=== PATIENT | female | born 1945 | race Caucasian/White ===

== ENCOUNTER 2020-05-15 12:10 | Emergency (ER) | payer MEDICARE, BC ==
[2020-05-15 12:52] LABS: VENOUS BLOOD HCO3 6.6 mmol/L (20-32); VENOUS BLOOD PCO2 35.8 mmHg (35-63); VENOUS BLOOD PH 6.88 (7.30-7.42)
[2020-05-15 12:54] LABS: HEMATOCRIT 34.1 % (36.0-47.0); HEMOGLOBIN 10.4 g/dL (12.0-15.5); MEAN CORPUSCULAR HEMOGLOBIN 30.4 pg (27.0-33.4); MEAN CORPUSCULAR HGB CONC 30.4 g/dL (32.0-36.0); MEAN CORPUSCULAR VOLUME 100 fl (80-97); RED BLOOD COUNT 3.41 10^6/uL (3.72-5.28); RED CELL DISTRIBUTION WIDTH 13.2 % (11.5-14.0)
[2020-05-15] MEDS ORDERED: CALCIUM GLUCONATE 1000 MG/10 ML INJ IV ONE (12:54)
[2020-05-15] MEDS ORDERED: NORMAL SALINE 1000 ML 1,000 ML IV ONE ×3 (13:06→17:42)
[2020-05-15 13:10] LABS: ABSOLUTE LYMPHOCYTES# (MANUAL) 3.2 10^3/uL (0.5-4.7); ABSOLUTE MONOCYTES # (MANUAL) 0.6 10^3/uL (0.1-1.4); BASOPHILS % (MANUAL) 0 % (0-2); EOSINOPHILS % (MANUAL) 0 % (0-6); LYMPHOCYTES % (MANUAL) 15 % (13-45); MONOCYTES % (MANUAL) 3 % (3-13); SEGMENTED NEUTROPHILS % (MAN) 81 % (42-78); TOTAL CELLS COUNTED 100
[2020-05-15 13:11] LABS: PLATELET CLUMPS PRESENT; PLATELET COMMENT INCREASED; PLATELET COUNT 493 10^3/uL (150-450); POLYCHROMASIA SLIGHT; TOXIC GRANULATION SLIGHT; TOXIC VACUOLATION PRESENT
[2020-05-15] MEDS ORDERED: DEXTROSE 5%-WATER 1000 ML 1,000 ML with SODIUM BICARBONATE 150 MEQ IV PRN ×4 (13:11→18:26)
[2020-05-15] MEDS ORDERED: INSULIN REG, HUMAN 100 UNIT/ML 3 ML VIAL (PYX) IV ONE ×2 (13:17→16:36)
[2020-05-15] MEDS ORDERED: DEXTROSE 50%-WATER 25 GM/50 ML DISP.SYRIN IV ONE ×2 (13:17→16:37)
--- NOTE | 2020-05-15 13:17 | ER Document Report ---
ED General <ALLAN SAUL P - Last Filed: 05/15/20 20:05> - Related Data Home Medications: Lasix, labetalol, metformin, pravastatin, myocarditis, <PETR AWAD - Last Filed: 05/16/20 06:33> - General Chief Complaint: General Weakness Stated Complaint: GENERAL WEAKNESS Time Seen by Provider: 05/15/20 12:53 Primary Care Provider: ANDERSON TAYLOR MD [Primary Care Provider] - Follow up as needed - HPI Notes: Patient is a 75-year-old female brought in the emergency department for evaluation by EMS. Eventually she is had vomiting and diarrhea for the last 3 days. She has been weak and increasingly confused. She has had multiple episodes of diarrhea in the last 24 hours. Patient states she is only had "dry heaves" today. She denies any pain. Patient's daughter notes that she seems to have been having increased difficulty breathing starting yesterday. Otherwise she has been taking her medications as prescribed. No recent antibiotics. (PETR AWAD) - Related Data Allergies/Adverse Reactions: No Known Allergies Allergy (Unverified 05/15/20 16:18) Past Medical History - General Information source: Patient, Relative - Daughter - Social History Smoking Status: Never Smoker Frequency of alcohol use: None Family History: Reviewed & Not Pertinent - Medical History Medical History: Other - Anemia - Past Medical History Cardiac Medical History: Reports: Hx Hypercholesterolemia, Hx Hypertension Neurological Medical History: Reports: Hx Cerebrovascular Accident Endocrine Medical History: Reports: Hx Diabetes Mellitus Type 2 GI Medical History: Reports: Hx Gastroesophageal Reflux Disease, Hx Ulcer Past Surgical History: Reports: None <PETR AWAD - Last Filed: 05/16/20 06:33> Review of Systems - Review of Systems Constitutional: Weakness Respiratory: See HPI Gastrointestinal: See HPI Neurological/Psychological: See HPI -: Yes All other systems reviewed and negative <PETR AWAD - Last Filed: 05/16/20 06:33> Physical Exam <PETR AWAD - Last Filed: 05/16/20 06:33> - Vital signs Vitals: Pulse Ox 100 05/15/20 12:22 - Notes Notes: This is a 75-year-old female who appears her stated age in a significant amount of distress. She is obviously dyspneic, with abdominal breathing, clear respiratory distress. She is drowsy but arouses easily to verbal stimuli. Vital signs reviewed, please refer to chart. Head is normocephalic, atraumatic. Pupils equal round, reactive to light. Oral mucosa slightly dry. Neck is supple without meningismus. Heart is regular rate and rhythm. Lungs reveal diminished breath sounds but no wheezes, rales, rhonchi. Abdomen is obese, nontender, normoactive bowel sounds throughout. Extremities without cyanosis, clubbing. Posterior calves are nontender. Peripheral pulses are equal. Skin is warm and dry. Patient is awake, alert, cooperative with examiner. (PETR AWAD) Course - Laboratory Result Diagrams: 05/15/20 12:35 05/15/20 15:45 <ALLAN SAUL - Last Filed: 05/15/20 20:05> - Laboratory Result Diagrams: 05/15/20 12:35 05/15/20 15:45 - Diagnostic Test Radiology reviewed: Reports reviewed <PETR AWAD - Last Filed: 05/16/20 06:33> - Re-evaluation Re-evalutation: 05/15/20 18:59 I received pt in turnover from Dr. Awad awaiting transfer to [facility]. In short, unfortunate female with Acute Resp failure and Acute Renal Failure - oliguric - in need of emergent HD and no history of previous need for dialysis. She is currently on ventilator and levophed and most recent SBP is approximately 100. Sedated on Versed at 2 mg hours. No urine in lala at this point. 05/15/20 20:05 Helicopter transfer team is here and in the process of transporting pt. She is stable for transfer and Dr. Zacarias graciously has placed a trialysis catheter prior to transfer. She remains sedated and on a ventilator. (ALLAN SAUL) 05/15/20 14:16 Patient presents to the emergency department for evaluation of weakness. On arrival it was noted that her heart rate listed in the 160s, but I suspect this is incorrect artifact, as the T waves were peaked, likely getting counted twice. I went in and got a manual pulse which was found to be in the low 80s. Patient has had significant diarrhea and decreased oral intake over the last several days. Her complexes are markedly wide. Her likely diagnosis was hyperkalemia and acute renal failure. She was given calcium. Her venous pH was found to be 6.88, so she was started on bicarb and her fluids. When her potassium was reported to be just under 10, she was given insulin and dextrose. Currently, her QRS complexes have shortened significantly. She is stable. She was placed on BiPAP secondary to increased respiratory distress, which has improved significantly as well. I am still waiting laboratory investigations. She has 2 peripheral IV lines. She is currently stable, we will continue to monitor. 05/15/20 15:33 Patient has remained stable, but her blood pressure is borderline. Currently her blood pressures have she had a map of 60. Her systolic is in the 100s. The patient states she was feeling improved, was given a small dose of morphine for right buttock pain after falling a few days ago. Patient is laboratory ve sication she had acute renal failure, non-anion gap metabolic acidosis. This is all consistent with her diarrhea. She does have a 20,000 white count. She does have an elevated respiratory rate. Certainly she meets sirs criteria, but I do not have any clear source of infection at this time. Urinalysis and urine culture are pending at this time. Blood cultures already pending. Chest x-ray unremarkable. I have spoken with Dr. Doan. Certainly given her laboratory investigation findings, she may in fact need evaluation in the intensive care unit. BMP repeated, EKG repeated, awaiting Dr. Doan's evaluation. 05/15/20 16:37 Dr. Doan came to the department. He is concerned the patient may need emergent dialysis given her numbers. He states that if the potassium is shifted largely, he will accept the patient. Unfortunately, the patient's potassium is still 8.6. I will contact an outside facility for transfer. The patient would prefer to go to [facility] at this time. 05/15/20 17:[address] Prnice at 1650, mold swabber at [facility]. She agrees the patient needs transfer and likely emergent dialysis. She states that she would only accept the patient, however, if her airway is secured. She is concerned she has no reserve. I went and discussed this at length with the patient as well as the patient's daughter. Questions were sought and answered, and they h ave agreed to have airway secured with ET tube at this time. Currently room is being set up with glide scope, ET tube. Will pre-oxygenate, medicate with etomidate. Ordering Versed drip for sedation. We will continue to monitor, awaiting intubation. 05/15/20 17:25 Patient's airway secured. Sedation medications and vent orders placed. Awaiting a bed assignment at [facility]. 05/15/20 17:31 Urinalysis finally obtained and showed large leukocyte esterase with white and red blood cells. Urine culture is pending. Given this and her 20,000 white count, as well as elevated respiratory rate, she does meet sepsis criteria. Patient given Rocephin. 05/15/20 17:42 After intubation, patient's blood pressure did drop into the 70s over 40s. She was given a Versed 5 push in an effort to sedate her. I suspect this may have been the etiology of her low blood pressure. Verbal order given to open up fluids with bicarb. 1/3 L of normal saline is ordered. Her blood pressure has improved. I have ordered Levophed, but will have this held for a systolic blood pressure greater than 90, map greater than 65. She does have a bed assignment at [facility], room 3508. Given her further change in status and critical laboratory values, we will attempt to fly the patient. (PETR AWAD) - Vital Signs Vital signs: Temp Pulse Resp BP Pulse Ox 95.1 F L 16 117/48 L 96 05/15/20 19:46 05/15/20 19:46 05/15/20 19:46 05/15/20 19:46 - Laboratory Laboratory results interpreted by me: 05/15/20 05/15/20 05/15/20 12:35 12:35 13:52 WBC 20.0 H RBC 3.41 L Hgb 10.4 L Hct 34.1 L MCV 100 H MCHC 30.4 L Plt Count 493 H Seg Neuts % (Manual) 81 H Abs Neuts (Manual) 16.2 H VBG pH 6.88 L* VBG HCO3 6.6 L Sodium Potassium Carbon Dioxide Anion Gap BUN Creatinine Est GFR ( Amer) Est GFR (MDRD) Non-Af Glucose POC Glucose 437 H* Lactic Acid Magnesium Total Protein Urine Protein Urine Ketones Urine Blood Ur Leukocyte Esterase 05/15/20 05/15/20 05/15/20 14:11 14:11 15:35 WBC RBC Hgb Hct MCV MCHC Plt Count Seg Neuts % (Manual) Abs Neuts (Manual) VBG pH VBG HCO3 Sodium 135.8 L Potassium 9.2 H* Carbon Dioxide 6 L* Anion Gap 32 H BUN 73 H Creatinine 11.82 H Est GFR ( Amer) 4 L Est GFR (MDRD) Non-Af 3 L Glucose 318 H POC Glucose Lactic Acid 7.0 H Magnesium 2.6 H Total Protein 6.2 L Urine Protein 100 H Urine Ketones TRACE H Urine Blood LARGE H Ur Leukocyte Esterase LARGE H 05/15/20 05/15/20 15:45 19:18 WBC RBC Hgb Hct MCV MCHC Plt Count Seg Neuts % (Manual) Abs Neuts (Manual) VBG pH VBG HCO3 Sodium 136.9 L Potassium 8.6 H* Carbon Dioxide 5 L* Anion Gap 33 H BUN 74 H Creatinine 12.33 H Est GFR ( Amer) 4 L Est GFR (MDRD) Non-Af 3 L Glucose 283 H POC Glucose Lactic Acid 8.2 H Magnesium Total Protein Urine Protein Urine Ketones Urine Blood Ur Leukocyte Esterase - Diagnostic Test Radiology results interpreted by me: 05/15/20 14:21 Chest X-Ray 05/15/20 13:18 IMPRESSION: No evidence of acute cardiopulmonary abnormality. (PETR AWAD) - EKG Interpretation by Me Additional EKG results interpreted by me: 05/15/20 14:21 EKG reveals sinus mechanism with a rate of 75 bpm. First-degree AV block. Right bundle branch block. She has markedly widened QRS with peaked T waves consistent with likely hyperkalemia. There are no old studies available for comparison. 05/15/20 16:38 Repeat EKG shows a narrowing of the QRS to below 140 ms. Peaking of T waves has improved. (PETR AWAD) Procedures - Central Line Right Femoral Time completed: 17:50 Consent obtained: No Central line pre-insertion: Sterile PPE donned, Chloraprep applied Central line lumen type: Triple Ultrasound guided: Yes Line secured with sutures: No - Intubation Orotracheal Airway evaluation: Abnormal 3-3-2 rule, Obese Mallampati Classification: Class 3 Medications: Etomidate - 30 mg Intubation method: Orotracheal Blade type: Sonia Blade size: 3 Equipment used: Glidescope ETT size: 7.5 ETT secured at: Lips ETT secured at (cm): 19 Breath Sounds after Intubation: Equal End tidal CO2 confirmed: Yes Ventilator settings: SIMV - See separate order <PETR AWAD - Last Filed: 05/16/20 06:33> - Central Line Right Femoral Notes: 05/15/20 18:29 Year he was prepped and draped in the usual sterile fashion. Emergency override consent was given as the patient was moderately hypotensive. The right femoral vein was identified with the ultrasound. Under sterile technique, the right femoral vein was initially cannulated with the finder needle. There was dark blood, no pulsatile return. I went to advance the guidewire and did meet some resistance, but was hopeful that enough of the wire was fed. A small mckenna in the skin was placed with a 10 blade. I again I fed the dilator, and a small amount of resistance was obtained. I threaded the central line over the guidewire, which had already been flushed with normal saline. It would not advance appropriately. At one point I did receive return, but otherwise could not flush nor receive good return. The procedure was abandoned. (PETR AWAD) Critical Care Note - Critical Care Note Total time excluding time spent on procedures (mins): 95 <PETR AWAD - Last Filed: 05/16/20 06:33> Discharge <ALLAN SAUL P - Last Filed: 05/15/20 20:05> - Discharge Admitting Provider: Dr. Prince <PETR AWAD - Last Filed: 05/16/20 06:33> - Discharge Clinical Impression: Hyperkalemia, Metabolic acidosis, Nausea vomiting and diarrhea, Severe sepsis Acute renal failure Qualifiers: Acute renal failure type: unspecified Qualified Code(s): N17.9 - Acute kidney failure, unspecified Leukocytosis Qualifiers: Leukocytosis type: unspecified Qualified Code(s): D72.829 - Elevated white blood cell count, unspecified Urinary tract infection Qualifiers: Urinary tract infection type: site unspecified Hematuria presence: without hematuria Qualified Code(s): N39.0 - Urinary tract infection, site not specified Condition: Stable Disposition: [facility] Referrals: ANDERSON TAYLOR MD [Primary Care Provider] - Follow up as needed
[2020-05-15] MEDS ORDERED: ONDANSETRON HCL INJ/PF 4 MG/2 ML SDV IV ONE (13:18)
[2020-05-15] MEDS ORDERED: SODIUM BICARBONATE 8.4% INJ 50 MEQ/50 ML DISP.SYRIN IV ONE (13:30)
--- NOTE | 2020-05-15 14:12 | RADIOLOGY REPORT (SQ) ---
EXAM DESCRIPTION: CHEST SINGLE VIEW IMAGES COMPLETED DATE/TIME: 05/15/2020 2:03 pm REASON FOR STUDY: dyspnea COMPARISON: None. EXAM PARAMETERS: NUMBER OF VIEWS: One view. TECHNIQUE: Single frontal radiographic view of the chest acquired. RADIATION DOSE: NA LIMITATIONS: None. FINDINGS: LUNGS AND PLEURA: Low lung volumes without focal consolidation, large pleural effusion, or pneumothorax. MEDIASTINUM AND HILAR STRUCTURES: No masses. Contour normal. HEART AND VASCULAR STRUCTURES: Heart normal in size. Normal vasculature. BONES: No acute findings. HARDWARE: None in the chest. OTHER: No other significant finding. IMPRESSION: No evidence of acute cardiopulmonary abnormality. TECHNICAL DOCUMENTATION: JOB ID: [id number] 2010 [employer]- All Rights Reserved Reading location - IP/workstation name: [email or web address]
[2020-05-15] MEDS ORDERED: MORPHINE SULFATE 10 MG/ML INJ IV ONE (14:15)
[2020-05-15 15:19] LABS: ALBUMIN 3.7 g/dL (3.5-5.0); ALKALINE PHOSPHATASE 67 U/L (38-126); ASPARTATE AMINO TRANSFERASE 27 U/L (14-36); BILIRUBIN,TOTAL 0.2 mg/dL (0.2-1.3); BLOOD UREA NITROGEN 73 mg/dL (7-20); CALCIUM 9.4 mg/dL (8.4-10.2); CHLORIDE 98 mmol/L (98-107); GLUCOSE 318 mg/dL (75-110); TOTAL PROTEIN 6.2 g/dL (6.3-8.2)
[2020-05-15 15:21] LABS: ALCOHOL < 10 mg/dL (NONE DETECTED)
[2020-05-15 15:22] LABS: ANION GAP 32 (5-19); CARBON DIOXIDE 6 mmol/L (22-30); POTASSIUM 9.2 mmol/L (3.6-5.0)
[2020-05-15 16:31] LABS: BLOOD UREA NITROGEN 74 mg/dL (7-20); CALCIUM 9.2 mg/dL (8.4-10.2); GLUCOSE 283 mg/dL (75-110)
[2020-05-15 16:36] LABS: CHLORIDE 99 mmol/L (98-107)
[2020-05-15 16:37] LABS: ANION GAP 33 (5-19); POTASSIUM 8.6 mmol/L (3.6-5.0)
[2020-05-15 16:38] LABS: CARBON DIOXIDE 5 mmol/L (22-30)
[2020-05-15 16:48] LABS: APPEARANCE,URINE CLOUDY; BILIRUBIN,URINE NEGATIVE (NEGATIVE); COLOR,URINE YELLOW; GLUCOSE, URINE NEGATIVE (NEGATIVE); KETONES,URINE TRACE mg/dL (NEGATIVE); LEUKOCYTE ESTERASE,URINE LARGE (NEGATIVE); NITRITE,URINE NEGATIVE (NEGATIVE); PROTEIN,URINE 100 mg/dL (NEGATIVE); URINE SPECIFIC GRAVITY 1.012; UROBILINOGEN,URINE NEGATIVE mg/dL (<2.0)
[2020-05-15 17:01] LABS: URINE AMPHETAMINES SCREEN NEGATIVE; URINE BARBITURATES SCREEN NEGATIVE; URINE BENZODIAZEPINES SCREEN NEGATIVE; URINE COCAINE SCREEN NEGATIVE; URINE MARIJUANA (THC) SCREEN NEGATIVE; URINE METHADONE SCREEN NEGATIVE; URINE PHENCYCLIDINE SCREEN NEGATIVE
[2020-05-15] MEDS ORDERED: ETOMIDATE INJ/PF 20 MG/10 ML SDV IV ONE (17:07)
--- NOTE | 2020-05-15 17:16 | PDOC CRITICAL CARE PROG REPORT ---
General Date:: 05/15/20 Hospital Day:: 1 Resuscitation Status: Full Code Events in the past 12 to 24 Hours:: N/V, dehydration and ARF with hyperkalemia. Review of systems relevant to events:: GI, renal. Reason for ICU Addmission:: Evaluation. - Medications: Medications reviewed and adjusted accordingly: Yes Vasopressors:: None Sedation:: None Physical Exam Vital Signs: Temp Pulse Resp BP Pulse Ox 27 H 123/62 99 05/15/20 16:43 05/15/20 15:31 05/15/20 16:43 Intake & Output 05/14/20 05/15/20 05/16/20 06:59 06:59 06:59 Intake Total 1000 Balance 1000 Weight 108.862 kg Weight/Height Weight 108.862 kg Height 5 ft 1 in General appearance: PRESENT: cooperative, mild distress, morbidly obese Head exam: PRESENT: atraumatic, normocephalic Eye exam: PRESENT: conjunctiva pink, EOMI, PERRLA. ABSENT: scleral icterus Ear exam: PRESENT: normal external ear exam Mouth exam: PRESENT: dry mucosa, tongue midline Respiratory exam: PRESENT: clear to auscultation khoi. ABSENT: rales, rhonchi, wheezes Cardiovascular exam: PRESENT: RRR. ABSENT: diastolic murmur, rubs, systolic murmur GI/Abdominal exam: PRESENT: distended, soft Rectal exam: PRESENT: deferred Gentrourinary exam: PRESENT: indwelling catheter Extremities exam: PRESENT: full ROM. ABSENT: calf tenderness, clubbing, pedal edema Musculoskeletal exam: PRESENT: normal inspection Neurological exam: PRESENT: alert, awake, oriented to person, oriented to place, oriented to time, oriented to situation Psychiatric exam: PRESENT: appropriate affect, normal mood. ABSENT: homicidal ideation, suicidal ideation Skin exam: PRESENT: dry, intact, warm. ABSENT: cyanosis, rash Laboratory/Radiographs Laboratory Results: 05/15/20 12:35 05/15/20 15:45 05/15/20 05/15/20 05/15/20 12:35 12:35 12:35 WBC 20.0 H RBC 3.41 L Hgb 10.4 L Hct 34.1 L MCV 100 H MCH 30.4 MCHC 30.4 L RDW 13.2 Plt Count 493 H Seg Neutrophils % Not Reportable VBG pH 6.88 L* VBG pCO2 35.8 VBG HCO3 6.6 L VBG Base Excess -26.0 Sodium Cancelled Potassium Cancelled Chloride Cancelled Carbon Dioxide Cancelled Anion Gap Cancelled BUN Cancelled Creatinine Cancelled Est GFR ( Amer) Cancelled Est GFR (Non-Af Amer) Cancelled Glucose Cancelled Lactic Acid Calcium Cancelled Magnesium Cancelled Total Bilirubin Cancelled AST Cancelled Alkaline Phosphatase Cancelled Total Protein Cancelled Albumin Cancelled Urine Color Urine Appearance Urine pH Ur Specific Jasper Urine Protein Urine Glucose (UA) Urine Ketones Urine Blood Urine Nitrite Ur Leukocyte Esterase Urine WBC (Auto) Urine RBC (Auto) 05/15/20 05/15/20 05/15/20 12:35 14:11 14:11 WBC RBC Hgb Hct MCV MCH MCHC RDW Plt Count Seg Neutrophils % VBG pH VBG pCO2 VBG HCO3 VBG Base Excess Sodium 135.8 L Potassium 9.2 H* Chloride 98 Carbon Dioxide 6 L* Anion Gap 32 H BUN 73 H Creatinine 11.82 H Est GFR ( Amer) 4 L Est GFR (Non-Af Amer) Glucose 318 H Lactic Acid Cancelled 7.0 H Calcium 9.4 Magnesium 2.6 H Total Bilirubin 0.2 AST 27 Alkaline Phosphatase 67 Total Protein 6.2 L Albumin 3.7 Urine Color Urine Appearance Urine pH Ur Specific Jasper Urine Protein Urine Glucose (UA) Urine Ketones Urine Blood Urine Nitrite Ur Leukocyte Esterase Urine WBC (Auto) Urine RBC (Auto) 05/15/20 05/15/20 15:35 15:45 WBC RBC Hgb Hct MCV MCH MCHC RDW Plt Count Seg Neutrophils % VBG pH VBG pCO2 VBG HCO3 VBG Base Excess Sodium 136.9 L Potassium 8.6 H* Chloride 99 Carbon Dioxide 5 L* Anion Gap 33 H BUN 74 H Creatinine 12.33 H Est GFR ( Amer) 4 L Est GFR (Non-Af Amer) Glucose 283 H Lactic Acid Calcium 9.2 Magnesium Total Bilirubin AST Alkaline Phosphatase Total Protein Albumin Urine Color YELLOW Urine Appearance CLOUDY Urine pH 5.0 Ur Specific Jasper 1.012 Urine Protein 100 H Urine Glucose (UA) NEGATIVE Urine Ketones TRACE H Urine Blood LARGE H Urine Nitrite NEGATIVE Ur Leukocyte Esterase LARGE H Urine WBC (Auto) 86 Urine RBC (Auto) >182 Impressions: Chest X-Ray 05/15/20 13:18 IMPRESSION: No evidence of acute cardiopulmonary abnormality. EKG: NSR now. Earlier had peaked T-waves. All labs, radiographs, diagnostic studies and EKGs were personally reviewed: Yes In addition, reports of radiographic and diagnostic studies were read: Yes Assessment and Plan - Diagnosis (1) Acute renal failure Qualifiers: Acute renal failure type: with acute tubular necrosis Qualified Code(s): N17.0 - Acute kidney failure with tubular necrosis Is this a current diagnosis for this admission?: Yes Plan: Profound with CR about 12 and GFR 4. Largely from dehydration. Hyperkalemic as well. I doubt her Cr will improve much in the next 24 hours. (2) Diabetes Qualifiers: Chronic kidney disease stage: stage 5, not on chronic dialysis Is this a current diagnosis for this admission?: Yes Plan: Currently not controlled in 3-400 range (3) Hyperkalemia Is this a current diagnosis for this admission?: Yes Plan: Level is nearly 9. Repeat aftewr fluid and bicarb is 8.6. Pt needs emergant HD or CRRT. HD not available at this time. CRRT not done at [place]. [facility] (4) Metabolic acidosis Is this a current diagnosis for this admission?: Yes Plan: Still acidotic despite bicarb drip. (5) Nausea vomiting and diarrhea Is this a current diagnosis for this admission?: Yes Plan: Currently not active but the illness has lasted 3-4 days and patient has been taking lasix thus worsening the situation. Plan Summary: [facility] for secure airway on bipap currently. Critical Time Critical Time (minutes): 40 Level of Care: ICU Anticipated discharge: [facility] Anticipated DC Timeframe: Other -: 1. The care of a critical patient is a dynamic process. This note is a fraud representative synopsis but static in nature. The timeframe for treatments given in order is not necessarily the actual time these treatments may have been done. 2. This patient requires critical care secondary to ongoing requirements for therapy not offered or safe outside the critical care environment. Transfer to a lower level of care will result in altered life or limb morbidity and mortality. 3. Multidisciplinary rounds completed. 4. ABCDE bundle addressed.
[2020-05-15] MEDS ORDERED: MIDAZOLAM 2 MG/2 ML INJ ONE (17:23)
[2020-05-15] MEDS ORDERED: MIDAZOLAM 2 MG/2 ML INJ IV ONE (17:24)
[2020-05-15] MEDS: MIDAZOLAM HCL 50 MG/100 ML RTUINJ IV PRN ×2 (17:33→18:48)
[2020-05-15] MEDS ORDERED: NOREPINEPHRINE BITARTRATE INJ/PF 4 MG/4 ML SDV IV ONE (17:40)
--- NOTE | 2020-05-15 18:03 | RADIOLOGY REPORT (SQ) ---
EXAM DESCRIPTION: CHEST SINGLE VIEW IMAGES COMPLETED DATE/TIME: 05/15/2020 4:34 pm REASON FOR STUDY: ETT placement COMPARISON: Same date at 1401 hours. . EXAM PARAMETERS: NUMBER OF VIEWS: One view. TECHNIQUE: Single frontal radiographic view of the chest acquired. RADIATION DOSE: NA LIMITATIONS: None. FINDINGS: LUNGS AND PLEURA: Patchy bibasilar atelectasis. No focal consolidation or pleural effusio n. MEDIASTINUM AND HILAR STRUCTURES: No masses. Contour normal. HEART AND VASCULAR STRUCTURES: Heart normal in size. Normal vasculature. BONES: No acute findings. HARDWARE: Interval placement of endotracheal tube with tip approximately 1.9 cm above the salazar. Es ophagogastric tube tip and side-hole are below the diaphragm likely within the stomach. OTHER: No other significant finding. IMPRESSION: Endotracheal and esophagogastric tubes are in good position. Patchy bibasilar atelectas is. TECHNICAL DOCUMENTATION: JOB ID: [id number] 2010 [email or web address]- All Rights Reserved Reading location - IP/workstation name: [email or web address]
[2020-05-15] MEDS: DEXTROSE 5%-WATER 250 ML with NOREPINEPHRINE BITARTRATE 4 MG IV PRN ×4 (18:30→18:34)
[2020-05-15] MEDS ORDERED: FENTANYL CITRATE INJ/PF 100 MCG/2 ML AMPUL ONE (18:42)
[2020-05-15] MEDS ORDERED: FENTANYL CITRATE INJ/PF 100 MCG/2 ML AMPUL IV ONE (18:46)
--- NOTE | 2020-05-15 18:48 | EKG REPORT ---
SEVERITY:- ABNORMAL ECG - SINUS RHYTHM FIRST DEGREE AV BLOCK IVCD, CONSIDER ATYPICAL RBBB INFERIOR INFARCT, AGE INDETERMINATE ST ELEVATION, WITH EPSILON WAVE V1-3 SUGGESTS BRUGADA SYNDROME, CONSULT EP : Confirmed by: Presley Huynh MD 15-May-2020 18:47:48
--- NOTE | 2020-05-15 18:49 | EKG REPORT ---
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
[2020-05-15 19:53] VITALS: BP 117/48
--- NOTE | 2020-05-15 19:57 | Operative Report ---
Nonrecallable Operative Report DATE OF SURGERY: 05/15/20 PREOPERATIVE DIAGNOSIS: 1. Sepsis. 2. Hyperkalemia requiring emergent dialysis. 3. Phlebosclerosis POSTOPERATIVE DIAGNOSIS: Same as above OPERATION: 1. Ultrasound-guided central venous puncture. 2. Right femoral Vas-Cath placement SURGEON: RENÉ ALMENDAREZ ANESTHESIA: Local TISSUE REMOVED OR ALTERED: None COMPLICATIONS: None apparent ESTIMATED BLOOD LOSS: Minimal PROCEDURE: Drains/implants: Right femoral Vas-Cath at 30 cm. Procedure in detail: Emergency consent was obtained due to the patient's hyperkalemia, severe sepsis, and intubated status. The right groin was prepped and draped in a normal sterile fashion. The ultrasound was used to identify the right femoral vein. Under direct ultrasonic guidance, the femoral vein was cannulated with the supplied access needle. Dark venous, nonpulsatile blood was returned in the syringe. The wire was inserted into the vein easily. The wire was confirmed to be within the lumen of the vein using the ultrasound device. Picture documentation was obtained. Next, the catheter was slid over the wire using a modified Seldinger technique. The catheter aspirated and flushed easily. The catheter returned dark venous, nonpulsatile blood. After the catheter was flushed x3, it was sutured to the skin. An occlusive dressing was placed over the catheter. The procedure was at this time concluded. All sponge, instrument, and needle counts were correct. Condition: Critical.
== END 2020-05-15 20:14 | disposition short-term general hospital (02) ==
LOC: ER 12:10
DX: A41.9 Sepsis, unspecified organism (principal); R65.20 Severe sepsis without septic shock; N17.0 Acute kidney failure with tubular necrosis; I12.0 Hypertensive chronic kidney disease with stage 5 chronic kidney disease or end stage renal disease; E11.22 Type 2 diabetes mellitus with diabetic chronic kidney disease; N18.5 Chronic kidney disease, stage 5; N39.0 Urinary tract infection, site not specified; E87.5 Hyperkalemia; J96.00 Acute respiratory failure, unspecified whether with hypoxia or hypercapnia; E87.2 Acidosis; E86.0 Dehydration; R11.2 Nausea with vomiting, unspecified; R19.7 Diarrhea, unspecified; R53.1 Weakness; R41.0 Disorientation, unspecified; E78.00 Pure hypercholesterolemia, unspecified; Z79.899 Other long term (current) drug therapy; Z79.84 Long term (current) use of oral hypoglycemic drugs; I44.0 Atrioventricular block, first degree; I45.10 Unspecified right bundle-branch block
CPT/HCPCS: 31500; 36556; 93005; 96376; 99285; 96361; 51702; 96374; 96375; 36415; 87040; 87086; 82962; 80307 ×2; 83605; 83735; 85025; 87077; 80053; 81001; 82803; 87150 ×26; 71045; 94660; 93010; J2250 ×2; J0610; J3490 ×4; J3010; J2270; A9270; J2405; J7060 ×2; J7030; J1815